=== PATIENT | female | born 1985 | race Caucasian/White ===

== ENCOUNTER 2016-12-10 15:40 | Emergency (ER) | payer SELFPAY ==
[~2016-12-10] VITALS: Ht 167.6 cm; Wt 79.4 kg
[2016-12-10 15:40] VITALS: BP 128/74; PULSE 100; RESP 18; TEMP 97.8; O2SAT 96
[~2016-12-10 15:40] MED LIST: IRON1CAP12 PO; MULT-518 PO
--- NOTE | 2016-12-10 15:44 | NUR ---
Patient triaged and placed in waiting room. VSS and patient appears in no acute distress at this time. Accompanied by FRIEND, awaiting available bed, and MD notified of need for MSE.
--- NOTE | 2016-12-10 15:57 | NUR ---
DR MACHUCA EVALUATING PT IN TRIAGE ROOM
[2016-12-10] MEDS ORDERED: LIDOCAINE 2%, 20 ML MDV INJ ONE (16:15)
--- NOTE | 2016-12-10 16:41 | NUR ---
BROUGHT BACK TO BED #4 AND REPORT GIVEN TO ELOISA
--- NOTE | 2016-12-10 16:48 | NUR ---
ER Dr. Santiago at bedside examining patient.
--- NOTE | 2016-12-10 16:51 | NUR ---
RIGHT EAR BEING IRRIGATED BY PAULA ZAMBRANO AT THIS TIME. PT TOLERATED IT WELL.
[2016-12-10 16:58] VITALS: TEMP 98
[2016-12-10 17:01] VITALS: BP 127/71; PULSE 77; RESP 19; O2SAT 99
--- NOTE | 2016-12-10 17:01 | NUR ---
Patient given written and verbal discharge instructions and verbalizes understanding. ER MD discussed with patient the results and treatment provided. Given copies of tests performed in ER. Patient in stable condition. ID arm band removed. Rx of NONE given. Patient educated on pain management and to follow up with PMD. Pain Scale 0/10. Opportunity for questions provided and answered.
== END 2016-12-10 17:01 | disposition home or self-care (01) ==
LOC: SED 15:40
DX: T16.1XXA Foreign body in right ear, initial encounter (principal); X58.XXXA Exposure to other specified factors, initial encounter; Y93.89 Activity, other specified; Y92.89 Other specified places as the place of occurrence of the external cause; Y99.8 Other external cause status
CPT/HCPCS: 99284; J2001